=== PATIENT | female | born 1975 ===

== ENCOUNTER 2018-05-22 03:15 | Emergency (ER) | payer SELFPAY ==
[~2018-05-22] VITALS: Ht 157.5 cm; Wt 74.5 kg
[2018-05-22 03:21] VITALS: Ht 157.5 cm; Wt 74.5 kg
[2018-05-22] MEDS ORDERED: WELLBUTRIN XL150 M1 PO (03:22)
[2018-05-22 04:36] LABS: APPEARANCE HAZY (CLEAR); BILIRUBIN NEGATIVE (NEGATIVE); COLOR ORANGE (YELLOW); GLUCOSE NEGATIVE (NEGATIVE); HCG URINE NEGATIVE (NEGATIVE); KETONE NEGATIVE (NEGATIVE); NITRITE POSITIVE (NEGATIVE); PROTEIN NEGATIVE (NEGATIVE); SPECIFIC GRAVITY 1.015 (1.005-1.020); UROBILINOGEN NORMAL (NORMAL)
[2018-05-22 04:37] LABS: BACTERIA MODERATE /hpf (NONE SEEN); EPITHELIAL CELLS 0-5 /hpf (0-5)
[2018-05-22] MEDS ORDERED: KEFLEX500 MG PO (04:52)
[2018-05-22 05:15] VITALS: BP 142/69
== END 2018-05-22 05:16 | disposition home or self-care (01) ==
LOC: D.ER 03:15
PROVIDERS: Family Medicine
DX: N39.0 Urinary tract infection, site not specified (principal); R39.15 Urgency of urination; R30.0 Dysuria